=== PATIENT | female | born 1980 | race Caucasian/White ===

== ENCOUNTER → 2020-09-29 12:21 | Outpatient (CLI) | payer OTHER, MEDICAID, SELFPAY ==
--- NOTE | 2020-09-29 12:26 | US_ITS ---
STUDY: FIRST TRIMESTER OBSTETRICAL ULTRASOUND REASON FOR EXAM: Female, 39 years old ENCOUNTER FOR SCREENING FOR UNCERTAIN DATES LMP: 07/17/2020 TECHNIQUE: Transabdominal TECHNICAL QUALITY: Adequate. PRIOR ULTRASOUND: None. FINDINGS: There is visualization of a single gestational sac in a normal intrauterine position. The gestational sac shape is within normal limits. There is no demonstrated yolk sac. There is visualization of the placenta. Adjacent to the gestational sac is a small hypoechoic area, this may represent small subchorionic hemorrhage. There is visualization of a live embryo. The crown-rump length (CRL) measures 4.3 cm, indicating an estimated gestational age (EGA) of 10 weeks, 6 days. There is demonstrated cardiac activity with a heart rate of 171 bpm. The estimated gestation age (EGA) by LMP is 10 weeks, 4 days. The estimated date of delivery (SARITA) by LMP is 04/23/2021. The estimated gestation age (EGA) by US is 10 weeks, 6 days. The estimated date of delivery (SARITA) by US is 04/21/2021. The uterus measures 11.2 x 9.7 x 7.8 cm. There is no demonstrated uterine fibroid. The cervix is closed. The right ovary measures 2.7 x 1.8 x 1.5 cm. There is no right ovarian cyst. There is no visualized right adnexal mass or complex lesion. The left ovary measures 3.2 x 2.9 x 2.6 cm. There is a 2.4 x 1.7 x 2.2 cm left ovarian simple cyst. There is no visualized left adnexal mass or complex lesion. There is no fluid in the cul de sac. US/Init OB < 14Wks US IMPRESSION: Single live intrauterine . Adjacent to the gestational sac is a small hypoechoic area this may represent small subchorionic hemorrhage. Left ovarian simple cyst. Electronically Signed: Zaida Dick MD at 17:04 EST Tel , Service support ,
== END ==
DX: Z36.87 Encounter for antenatal screening for uncertain dates (principal)
CPT/HCPCS: 76801